=== PATIENT | male | born 1950 | race Two or more races ===

== ENCOUNTER 2019-10-25 14:22 | Inpatient (IN) | payer MEDICAID, OTHER ==
[~2019-10-25] VITALS: Ht 170.2 cm; Wt 79.8 kg
--- NOTE | 2019-10-25 14:37 | NUR ---
PT BIB [facility] [address] AND [employer]. PT IS IN CUSTODY. PT IS C/O GENERALIZED BODY PAIN AND ANXIETY. PT WAS TRIAGED AND TAKEN TO [facility]
[2019-10-25] MEDS ORDERED: ASPIRIN 325 MG TABLET PO ONE (15:30)
[2019-10-25] MEDS ORDERED: ONDANSETRON HCL/PF 4 MG/2 ML VIAL IVP ONE (15:30)
[2019-10-25] MEDS ORDERED: NITROGLYCERIN 0.4 MG/TAB BOTTLE SL ONE (15:30)
[2019-10-25] MEDS ORDERED: MORPHINE SULFATE INJ 2 MG/ML DISP.SYRIN IV ONE (15:30)
[2019-10-25] MEDS ORDERED: IV NS 0.9% 1,000 ML BAG IV ONE (15:30)
[2019-10-25 15:43] LABS: BASOPHILS # (AUTO) 0.1 /CMM (0.0-0.2); BASOPHILS % (AUTO) 0.7 % (0.0-2.0); EOSINOPHILS % (AUTO) 0.7 % (0.0-6.0); HEMATOCRIT 49 % (39-51); HEMOGLOBIN 16.5 g/dL (13.5-17.5); LYMPHOCYTES % (AUTO) 36.8 % (20.0-44.0); MEAN CORPUSCULAR HGB CONC 34 g/dl (31.0-36.0); MEAN CORPUSCULAR VOLUME 91 fL (80-96); MONOCYTES # (AUTO) 0.8 /CMM (0.1-1.30); MONOCYTES % (AUTO) 9.4 % (2.0-12.0); NEUTROPHILS # (AUTO) 4.3 /CMM (1.8-8.9); NEUTROPHILS % (AUTO) 52.4 % (43.0-81.0); PLATELET COUNT (AUTO) 287 /CMM (150-450); RED BLOOD CELL COUNT(AUTO) 5.44 MIL/uL (4.5-6.0); WHITE BLOOD COUNT (AUTO) 8.2 K/uL (4.3-11.0)
[2019-10-25] MEDS ORDERED: ONDANSETRON HCL/PF 4 MG/2 ML VIAL ONE (15:55)
[2019-10-25 15:56] LABS: CALCIUM, SERUM 9.9 mg/dL (8.5-10.1); CREATININE 1.1 mg/dL (0.6-1.3); POTASSIUM 3.6 mmol/L (3.5-5.1)
[2019-10-25] MEDS ORDERED: NITROGLYCERIN 0.4 MG/TAB BOTTLE ONE (15:56)
[2019-10-25] MEDS ORDERED: MORPHINE SULFATE INJ 4 MG/ML DISP.SYRIN ONE (15:56)
[2019-10-25] MEDS ORDERED: ASPIRIN 325 MG TABLET ONE (15:56)
[2019-10-25 16:03] LABS: ALBUMIN 4.1 g/dL (3.4-5.0); BILIRUBIN,DIRECT 0.1 mg/dL (0.0-0.2); TOTAL PROTEIN, SERUM 8.1 g/dL (6.4-8.2)
--- NOTE | 2019-10-25 16:30 | NUR ---
PAGED [facility].
--- NOTE | 2019-10-25 16:50 | NUR ---
CALLED NURSING SUP FOR TELE BED.
--- NOTE | 2019-10-25 16:57 | NUR ---
NURSING SUP GAVE TELE BED 108.
--- NOTE | 2019-10-25 17:16 | NUR ---
CALLING REPORT TO REVA FRAUSTO
--- NOTE | 2019-10-25 17:18 | NUR ---
RN NOTE RECEIVED REPORT FROM REVA MEIER
--- NOTE | 2019-10-25 17:26 | NUR ---
URINE SAMPLE OBTAINED.
[2019-10-25 17:35] LABS: APPEARANCE,URINE Clear (CLEAR); BILIRUBIN,URINE Negative (NEGATIVE); BLOOD, URINE Negative Ery/uL (NEGATIVE); COLOR,URINE Yellow (YELLOW); KETONES,URINE 40 (NEGATIVE); LEUKOCYTE ESTERASE ,URINE Negative (NEGATIVE); NITRITE, URINE Negative (NEGATIVE); PROTEIN,URINE Negative (NEGATIVE); UGLUCOSE Negative (NEGATIVE); UROBILINOGEN,URINE 0.2 EU/dL (0.2)
[2019-10-25] MEDS ORDERED: NITR0.4T48 SL (18:14)
[2019-10-25] MEDS ORDERED: ATOR40TA PO (18:14)
[2019-10-25] MEDS ORDERED: ASPI-1152 PO (18:14)
[2019-10-25] MEDS ORDERED: TAMS-12 PO (18:14)
[2019-10-25] MEDS ORDERED: CLOP75TA15 PO (18:14)
[2019-10-25] MEDS ORDERED: METO25TA20 PO (18:14)
[2019-10-25] MEDS ORDERED: LISI-603 PO (18:14)
--- NOTE | 2019-10-25 18:44 | NUR ---
PT IS APPROVED TO BE ADMITTED.
[2019-10-25 20:00] VITALS: BP 166/108
--- NOTE | 2019-10-25 20:08 | NUR ---
PATIENT CAME FROM ER AT 1913, A/O X4 WITH POLICE ESCORT AND HANDCUFFED ON THE RIGHT WRIST. NO SOB NOTED. COMPLAINED OF PAIN 10/10, GENERALIZED PAIN. SKIN ASSESSMENT DONE INTACT SKIN. TEXTED CON RAMSEY FOR ADMISSION ORDERS AND INFORMING THE BP 166/100 AND PAIN OF 10/10. JOSE F STEPHENS MADE AWARE.
[2019-10-25] MEDS ORDERED: NITROGLYCERIN 0.4 MG/TAB BOTTLE SL PRN (20:30)
[2019-10-25] MEDS ORDERED: ZOLPIDEM TARTRATE 5 MG TABLET PO PRN (21:00)
[2019-10-25] MEDS ORDERED: hydrALAZINE HCL IV 20 MG VIAL IV PRN (21:00)
[2019-10-25] MEDS ORDERED: MORPHINE SULFATE INJ 2 MG/ML DISP.SYRIN IV PRN (21:00)
[2019-10-25] MEDS ORDERED: CLONIDINE HCL 0.1 MG TABLET PO PRN (21:00)
[2019-10-25] MEDS ORDERED: MAGNESIUM HYDROXIDE 30 ML UDC PO PRN (21:00)
[2019-10-25] MEDS ORDERED: Z GUARD REMEDY 2 OZ OINT TP PRN (21:00)
[2019-10-25] MEDS: NITROGLYCERIN PACKET 1 GM PACKET TOP SCH (21:00)
[2019-10-25] MEDS ORDERED: HYDROCODONE/APAP 5/325MG 1 EACH TABLET PO PRN (21:00)
[2019-10-25] MEDS ORDERED: ACETAMINOPHEN 325 MG TABLET PO PRN (21:00)
[2019-10-25] MEDS ORDERED: ONDANSETRON HCL/PF 4 MG/2 ML VIAL IVP PRN (21:00)
[2019-10-25] MEDS ORDERED: MAG HYDROX/AL HYDROX/SIMETH 30 ML UDC PO PRN (21:00)
[2019-10-25] MEDS: METOPROLOL TARTRATE 25 MG TABLET PO SCH (21:54)
[2019-10-25] MEDS: TAMSULOSIN 0.4 MG CAP.SR.24H PO SCH (21:54)
[2019-10-25] MEDS: LISINOPRIL (20MG) 20 MG TABLET PO SCH (21:54)
[2019-10-25] MEDS: MORPHINE SULFATE INJ 2 MG/ML DISP.SYRIN IV PRN (21:55)
[2019-10-26] VITALS (8 sets, daily range): BP systolic 89–131; BP diastolic 49–89
[2019-10-26] MEDS: NITROGLYCERIN PACKET 1 GM PACKET TOP SCH ×3 (05:00→20:33)
[2019-10-26 06:50] LABS: BASOPHILS % (AUTO) 0.5 % (0.0-2.0); EOSINOPHILS % (AUTO) 1.9 % (0.0-6.0); HEMATOCRIT 45 % (39-51); HEMOGLOBIN 15.1 g/dL (13.5-17.5); LYMPHOCYTES # (AUTO) 2.1 /CMM (0.8-4.8); LYMPHOCYTES % (AUTO) 31.6 % (20.0-44.0); MEAN CORPUSCULAR HGB CONC 33 g/dl (31.0-36.0); MEAN CORPUSCULAR VOLUME 91 fL (80-96); MONOCYTES # (AUTO) 0.6 /CMM (0.1-1.30); MONOCYTES % (AUTO) 8.1 % (2.0-12.0); NEUTROPHILS # (AUTO) 3.9 /CMM (1.8-8.9); NEUTROPHILS % (AUTO) 57.9 % (43.0-81.0); PLATELET COUNT (AUTO) 238 /CMM (150-450); RED BLOOD CELL COUNT(AUTO) 4.98 MIL/uL (4.5-6.0); WHITE BLOOD COUNT (AUTO) 6.8 K/uL (4.3-11.0)
[2019-10-26 07:03] LABS: CALCIUM, SERUM 8.9 mg/dL (8.5-10.1); MAGNESIUM 1.9 mg/dL (1.8-2.4); PHOSPHORUS 3.7 mg/dL (2.5-4.9); POTASSIUM 3.9 mmol/L (3.5-5.1)
[2019-10-26] MEDS: MORPHINE SULFATE INJ 2 MG/ML DISP.SYRIN IV PRN ×3 (07:40→18:18)
--- NOTE | 2019-10-26 08:30 | NUR ---
TELE/RN NOTES PATIENT WAS SEEN AND EVALUATED BY DR. RIVERA WITH ORDERS FOR CTCA. PATIENT CONTINUES TO REMAIN IN STABLE CONDITION. WILL CONTINUE TO MONITOR CLOSELY.
[2019-10-26] MEDS ORDERED: ATORVASTATIN 40 MG TABLET PO SCH (09:00)
[2019-10-26] MEDS ORDERED: CLOPIDOGREL BISULFATE 75 MG TABLET PO SCH (09:00)
[2019-10-26] MEDS ORDERED: ASPIRIN EC 81 MG TABLET.DR PO SCH (09:00)
[2019-10-26] MEDS: TAMSULOSIN 0.4 MG CAP.SR.24H PO SCH (09:35)
[2019-10-26] MEDS: LISINOPRIL (20MG) 20 MG TABLET PO SCH (09:35)
[2019-10-26] MEDS: METOPROLOL TARTRATE 25 MG TABLET PO SCH ×2 (09:36→18:16)
[2019-10-26] MEDS ORDERED: METOPROLOL TARTRATE INJ 5 MG/5 ML AMPUL ONE (16:17)
[2019-10-26] MEDS ORDERED: IV NS 0.9% 500 ML IV ONE (17:00)
[2019-10-26] MEDS ORDERED: METOPROLOL TARTRATE INJ 5 MG/5 ML AMPUL IVP ONE (17:00)
[2019-10-26] MEDS ORDERED: NITROGLYCERIN 0.4 MG/TAB BOTTLE SL ONE (17:00)
--- NOTE | 2019-10-26 18:14 | NUR ---
follow-up cta result still pending [phone] notified,will put on hotline list to release result ,will continue to ff.up.
--- NOTE | 2019-10-26 18:45 | NUR ---
cta result still pending.
--- NOTE | 2019-10-26 19:02 | NUR ---
MS/RN CLOSING NOTES PATIENT CONTINUES TO REMAIN IN STABLE CONDITION THROUGHOUT THE SHIFT. PROVIDED COMFORT AND SAFETY. NO PAIN OR ACUTE DISTRESS AT THIS TIME. RESPIRATION EVEN AND UNLABORED. SKIN IS DRY WARM TO TOUCH. POLICE OFFICERS AT BEDSIDE AT ALL TIMES. PATIENT WAS ABLE TO TOLERATE MEAL AND MEDS WELL. NO ADVERSE REACTIONS. PATIENT ALSO WAS ABLE TO TOLERATE CTCA PROCEDURE WELL. AWAITING FOR RESULTS. IF NEGATIVE PER DR. RAMOS, D/C PATIENT. ALL DISCHARGE PAPERS WAS PREPARED. ALL NEEDS ANTICIPATED. CALL LIGHT WITHIN REACHED. BED LOCKED AND IN LOWEST POSITION. SAFETY MAINTAINED. WILL CONTINUE TO MONITOR CLOSELY. ENDORSED TO PM NURSE FOR ANDRES.
--- NOTE | 2019-10-26 20:18 | NUR ---
Dr. Daryn Adair, Application Architect paged for CT Angio results. Awaiting response.
--- NOTE | 2019-10-26 20:40 | NUR ---
Notified Dr. Adair re: CT Angio results and pt was cleared to be discharged. Also notified Dr. Adair re: redness and heat to neck and chest area. No new orders. Pt to be discharged at this time.
--- NOTE | 2019-10-26 20:58 | NUR ---
Discharge instructions given. Pt verbalized understanding of discharge instructions. Pt safely discharged under custody of [employer] officers.
--- NOTE | 2019-10-26 21:00 | NUR ---
Pt left hospital in stable condition. Pt safety maintained during hospital stay. Pt safely left hospital in custody of two [employer] officers.
== END 2019-10-26 21:00 | disposition home or self-care (01) | DRG 199 ==
LOC: ER 14:33 → TELE1 18:43 → MEDSG1 10-26 09:10
PROVIDERS: ADMIT Internal Medicine; ATTEND Internal Medicine
DX: I16.0 Hypertensive urgency (principal); I21.4 Non-ST elevation (NSTEMI) myocardial infarction; N17.0 Acute kidney failure with tubular necrosis; M19.90 Unspecified osteoarthritis, unspecified site; I25.10 Atherosclerotic heart disease of native coronary artery without angina pectoris; I10 Essential (primary) hypertension; Z95.5 Presence of coronary angioplasty implant and graft; I25.2 Old myocardial infarction; E78.5 Hyperlipidemia, unspecified; F17.200 Nicotine dependence, unspecified, uncomplicated; Z79.82 Long term (current) use of aspirin; Z79.899 Other long term (current) drug therapy; Z79.01 Long term (current) use of anticoagulants
CPT/HCPCS: 36415; 71045-TC; 75574; 80048-TC; 80061-TC; 80076-TC; 81000-TC; 83735-TC; 84100-TC; 84484-TC; 85025-TC; 85730-TC; 87081-TC; 93307-TC; G0378; J2270; J2405; J3490; J7030